=== PATIENT | female | born 1935 | race Caucasian/White ===

== ENCOUNTER 2021-05-27 09:29 | Outpatient (CLI) | payer MEDICARE, BC ==
[2021-05-27] VITALS (22 sets, daily range): BP systolic 157–197; BP diastolic 79–111
[~2021-05-27 09:29] MED LIST: ANAS1TAB49 PO; ATOR20TA66 PO; LEVO75TA PO; LOP25T PO; TICA90TA PO; VALS1TAB81 PO
== END 2021-05-27 23:59 | disposition home or self-care (01) ==
LOC: CARD DIAG 09:29
PROVIDERS: ATTEND Internal Medicine Cardiovascular Disease
DX: R55 Syncope and collapse (principal)
CPT/HCPCS: 93660